=== PATIENT | female | born 1945 | race African-American/Black ===

== ENCOUNTER 2019-01-19 05:26 | Observation (INO) | payer MEDICARE ==
--- NOTE | 2019-01-15 15:17 | Diagnostic Imaging Report ---
EXAMINATION: CHEST 2 VIEWS INDICATION: Pre-operative COMPARISON: None FINDINGS: LINES/TUBES:None LUNGS:The lungs are well-inflated. No focal consolidation or pulmonary edema. PLEURA:No pleural effusion or pneumothorax. MEDIASTINUM:The cardiomediastinal silhouette appears normal in size and shape. Atherosclerotic calcifications of the thoracic aorta. BONES/SOFT TISSUES:No acute osseous injury. ABDOMEN:No free air under the diaphragm. IMPRESSION: No focal pneumonia or pulmonary edema. Signed by: Marjorie Quesada MD on 01/15/2019 3:13 PM
[~2019-01-19] VITALS: Ht 167.6 cm; Wt 101.6 kg
[~2019-01-19 05:26] MED LIST: AMLODIPINE BESY10 MG PO; ATENOLOL100 MG PO; CLONIDINE HCL0.2 MG PO; CYMBALTA60 MG PO; DIOVAN320 MG PO; METFORMIN HCL500 MG PO; SIMVASTATIN20 MG PO; TIZANIDINE HCL4 M1 PO
--- OUTSIDE RECORDS SUMMARY | 2019-01-19 05:28 | XMS REPORT ---
Author Author [facility] Address Unknown Phone Unavailable Care Team Providers Care Licensed Sales Assistant Name Role Phone SHANNON TOWNSEND Unavailable Unavailable Problems This patient has no known problems. Allergies, Adverse Reactions, Alerts This patient has no known allergies or adverse reactions. Medications This patient has no known medications. Results Test Description Test Time Test Comments Text Results Atomic Results Result Comments CHEST 2 VIEWS 2019-01-15 15:13:00 [place] [address] Patient Name: PATRICK ENCISO MR #: [id number] : 1945 Age/Sex: 73/F Req #: [id number] [facility] Hospital Physician: Ordered by: SHANNON TOWNSEND MD Report #: [id number] Location: OR Room/Bed: Procedure: [id number] DX/CHEST 2 VIEWS Exam Date: 01/15/19 Exam Time: 1500 REPORT STATUS: Signed EXAMINATION: CHEST 2 VIEWS INDICATION: Pre-operative COMPARISON: None FINDINGS: LINES/TUBES:None LUNGS:The lungs are well-inflated. No focal consolidation or pulmonary edema. PLEURA:No pleural effusion or pneumothorax. MEDIASTINUM:The cardiomediastinal silhouette appears normal in size and shape. Atherosclerotic calcifications of the thoracic aorta. BONES/SOFT TISSUES:No acute osseous injury. ABDOMEN:No free air under the diaphragm. IMPRESSION: No focal pneumonia or pulmonary edema. Signed by: Audrey Quesada MD on 01/15/2019 3:13 PM Dictated By: AUDREY QUESADA MD 12 Transcribed By: RENEA on 01/15/191512 COPY TO: SHANNON TOWNSEND MD
[2019-01-19] MEDS ORDERED: CELECOXIB 200 MG CAP ONE (06:25)
[2019-01-19] MEDS ORDERED: DEXAMETHASONE SOD PHOS 10 MG/1 ML VIAL ONE (06:25)
[2019-01-19] MEDS ORDERED: GABAPENTIN 300 MG CAP ONE (06:25)
[2019-01-19] MEDS ORDERED: CEFAZOLIN SOD 1 GM/NS 50ML 100 ML IV ONE (06:26)
[2019-01-19] MEDS ORDERED: VANCOMYCIN HCL 1,000 MG ONE (06:51)
[2019-01-19] MEDS ORDERED: TRANEXAMIC ACID 1,000 MG/10 ML ML ONE (06:52)
[2019-01-19] MEDS ORDERED: SODIUM CHLORIDE 0.9% 500ML 500 ML ONE (06:52)
[2019-01-19] MEDS ORDERED: BACITRACIN 50,000 UNIT VIAL ONE (06:52)
[2019-01-19] MEDS ORDERED: ROPIVACAINE 246.25 MG, EPINEPHRINE HCL 1:1000 1ML 0.5 MG, CLONIDINE HCL 0.08 MG, KETORO... INJ ONE ×5 (08:00)
[2019-01-19] MEDS ORDERED: DEXMEDETOMIDINE HCL 2 ML ONE (08:58)
[2019-01-19] MEDS ORDERED: SUGAMMADEX SODIUM 200 MG/2 ML VIAL IV ONE (09:22)
[2019-01-19] MEDS ORDERED: DIPHENHYDRAMINE HCL INJ 50 MG/ML VIAL IM/IV PRN (09:30)
[2019-01-19] MEDS ORDERED: ACETAMINOPHEN 650 MG SUPP PR PRN (09:30)
[2019-01-19] MEDS ORDERED: ONDANSETRON HCL INJ 2MG/ML 2ML 2 MG/ML VIAL IV PRN (09:30)
[2019-01-19] MEDS ORDERED: PROMETHAZINE HCL (IM) 25 MG/ML VIAL IM PRN (09:30)
[2019-01-19] MEDS ORDERED: DOCUSATE SODIUM 100 MG CAP PO PRN (09:30)
[2019-01-19] MEDS ORDERED: HYDROCODONE/APAP 5MG-325MG TAB PO PRN (09:30)
[2019-01-19] MEDS ORDERED: FENTANYL CITRATE/PF 100MCG/2 ML INJ ONE ×2 (10:01→14:55)
[2019-01-19] MEDS ORDERED: TIZANIDINE HCL 4 MG TAB PO ONE (10:15)
--- NOTE | 2019-01-19 10:21 | Diagnostic Imaging Report ---
EXAMINATION: KNEE LEFT 1-2 VIEWS INDICATION: Postoperative COMPARISON: None FINDINGS: Portable AP and lateral views of the left knee demonstrate immediate postoperative findings of left total knee replacement. Alignment is anatomic. No unexpected fracture. Postoperative subcutaneous soft tissue emphysema. Surgical skin kishore in place. Small joint effusion. IMPRESSION: Anatomic alignment status post left total knee replacement. Signed by: Marjorie Quesada MD on 01/19/2019 10:18 AM
[2019-01-19] MEDS ORDERED: MORPHINE SULFATE INJ 4 MG/ML INJ 1ML ONE ×2 (10:26→10:50)
--- NOTE | 2019-01-19 13:45 | NUR ---
Received patient from PACU via stretcher. AAOx3 to time, person, place. Respirations even and unlabored. O2 2L NC. Dressing to left knee clean, dry, and intact, wrapped with BLADIMIR wrap. Oriented patient to room. Instructed to use call light for assistance. Voiced understanding.
[2019-01-19 14:00] VITALS: BP 163/79
[2019-01-19 14:16] VITALS: BP 163/79
[2019-01-19] MEDS ORDERED: MIDAZOLAM HCL 2 MG/2 ML VIAL ONE (14:55)
[2019-01-19] MEDS: HYDROCODONE/APAP 7.5MG-325MG 1 EA TAB PO PRN (14:55)
[2019-01-19] MEDS: CEFAZOLIN SOD 1 GM/NS 50ML 50 ML IV SCH ×2 (14:55→21:10)
[2019-01-19] MEDS: SODIUM CHLORIDE 0.9% 1000ML 1,000 ML IV SCH ×2 (14:55→19:23)
--- NOTE | 2019-01-19 15:32 | NUR ---
DR RUIZ OFFICE PREARRANGED FOLLOWING DISCHARGE PLAN OF: RETURNING HOME [address] [facility] [address] [facility] CONFIRMED WITH [facility] [phone] DME 3 IN ONE COMMODE,CPM AND ROLLING WALKER WITH WHEELS TO BE DELIVERED TO HOSPITAL BY 10AM PROVIDED BY [employer] [phone] PER KEKE. STATES IF UNABLE TO GET DELIVERED WILL CALL AND WE CAN ISSUE ROLLING WALKER AND THEY WILL FOLLOW UP FOR DELIVERY AT HOME FOLLOWING DAY.
--- NOTE | 2019-01-19 15:46 | NUR ---
PT STATES THEY DO HAVE A WALKER AT HOME AND WILL HAVE IT AT HOUSE TO GET OUT OF CARE TO [facility] REST OF DME DELIVERED TO HOME, CALLED KEKE AT [employer] TO LET HER KNOW WISHES.
[2019-01-19 16:08] VITALS: BP 149/66
[2019-01-19] MEDS: ASPIRIN 325 MG TAB PO SCH (16:19)
[2019-01-19] MEDS: CELECOXIB 200 MG CAP PO SCH (16:21)
[2019-01-19] MEDS: METFORMIN HCL 500 MG TAB PO SCH (16:21)
[2019-01-19] MEDS: ACETAMINOPHEN 1000 MG/100 ML IV SCH ×2 (16:21→23:16)
[2019-01-19] MEDS ORDERED: CELECOXIB 100 MG CAP PO SCH (17:00)
[2019-01-19] MEDS ORDERED: LIDOCAINE 2% /EPINEPHRINE 20 ML SDV INJ ONE (18:51)
[2019-01-19] MEDS ORDERED: ROPIVACAINE 0.5% 5 MG/ML 30 ML SDV ONE (18:51)
[2019-01-19] MEDS ORDERED: LABETALOL HCL 5 MG/ML 20ML VIAL ONE (18:53)
[2019-01-19] MEDS ORDERED: LIDOCAINE HCL 2% LOCAL INJ 5 ML SDV VIAL INJ ONE (18:53)
[2019-01-19] MEDS ORDERED: DEXAMETHASONE SOD PHOS INJ 4 MG/ML VIAL ONE (18:53)
[2019-01-19] MEDS ORDERED: NEOSTIGMINE 5 MG/5ML SYR ONE (18:53)
[2019-01-19] MEDS ORDERED: PROPOFOL IV EMULSION 10 MG/ML 20 ML VIAL ONE (18:53)
[2019-01-19] MEDS ORDERED: ONDANSETRON HCL INJ 2MG/ML 2ML 2 MG/ML VIAL ONE (18:53)
[2019-01-19] MEDS ORDERED: GLYCOPYRROLATE INJ 1MG/ 5 ML SYR ONE (18:53)
[2019-01-19] MEDS ORDERED: SEVOFLURANE INHAL SOLN 250 ML PEN BTL ONE (18:53)
[2019-01-19] MEDS ORDERED: ACETAMINOPHEN 1000 MG/100 ML IV ONE (18:53)
[2019-01-19] MEDS ORDERED: ROCURONIUM BROMIDE 10 MG/ML 5ML VIAL ONE (18:53)
[2019-01-19] MEDS ORDERED: SUCCINYLCHOLINE 200 MG/10 ML SYR ONE (18:53)
--- NOTE | 2019-01-19 19:05 | NUR ---
Report given to oncoming nurse of patients status. Resting in bed. No s/s of acute distress noted. CPM on at 60. Tolerating well. Side rails upx2, call light within reach.
--- NOTE | 2019-01-19 19:10 | NUR ---
REPORT TAKEN FROM MORNING RN.STABLE CONDITION.ON CPM @ 60 FLEXION DEGREE.
[2019-01-19 20:00] VITALS: BP 151/68
[2019-01-19 20:19] VITALS: BP 151/68
[2019-01-19] MEDS ORDERED: ZOLPIDEM TARTRATE 5 MG TAB PO PRN (21:00)
[2019-01-19] MEDS: CLONIDINE HCL 0.2 MG TAB PO SCH (21:09)
[2019-01-19] MEDS: SIMVASTATIN 20 MG TAB PO SCH (21:10)
[2019-01-19] MEDS: TIZANIDINE HCL 4 MG TAB PO SCH (21:10)
--- NOTE | 2019-01-19 21:39 | NUR ---
Assessment done.no resp.distress.tolerated cpm.voided by using bed rosado.uses spirometer.plexi pump is in place.bed locked and in lowest position.phone and call light within reach.instructed to call for assistance as needed.
[2019-01-20] VITALS (8 sets, daily range): BP systolic 141–189; BP diastolic 61–77
[2019-01-20] MEDS: HYDROCODONE/APAP 7.5MG-325MG 1 EA TAB PO PRN ×4 (01:11→16:57)
[2019-01-20] MEDS: SODIUM CHLORIDE 0.9% 1000ML 1,000 ML IV SCH ×2 (05:23→12:55)
[2019-01-20] MEDS: KETOROLAC TROMETHAMINE 30 MG/ML VIAL IV PRN ×3 (05:28→22:56)
[2019-01-20] MEDS: ACETAMINOPHEN 1000 MG/100 ML IV SCH ×2 (05:30→10:46)
--- NOTE | 2019-01-20 05:30 | NUR ---
Patient refused to put gwen hose on affected leg.
--- NOTE | 2019-01-20 06:00 | NUR ---
CPM applied @ 45 flexion degree at 06am.stable condition.
[2019-01-20] MEDS: CEFAZOLIN SOD 1 GM/NS 50ML 50 ML IV SCH (06:06)
--- NOTE | 2019-01-20 06:31 | Consultation ---
DATE OF CONSULTATION: REASON FOR CONSULTATION: . HISTORY OF PRESENT ILLNESS: The patient is a 73-year-old total knee arthroplasty for end-stage osteoarthritis, who has minimal pain postoperatively. REVIEW OF SYSTEMS: She denies any fever, chills, nausea, vomiting, headache, shortness of breath or dizziness. PAST MEDICAL HISTORY: Significant for diabetes, hyperlipidemia, and high blood pressure. MEDICATIONS: See MAR. ALLERGIES: NONE. SOCIAL HISTORY: Nonsmoker. Nondrinker. FAMILY HISTORY: Noncontributory. PHYSICAL EXAMINATION: VITAL SIGNS: . GENERAL: She is no apparent distress, lying in bed. NECK: Supple. No lymphadenopathy. CARDIOVASCULAR: Regular rate and rhythm. LUNGS: Clear to auscultation bilaterally. ABDOMEN: Good bowel sounds. Soft and nontender. EXTREMITIES: No clubbing or cyanosis. NEUROLOGIC: Nonfocal. ASSESSMENT AND PLAN: 1. Left knee pain, continue with postoperative care and physical therapy. 2. Anemia, check a CBC. 3. Diabetes. Continue with her medications and monitoring. 4. Hypertension. Continue with her medications and monitoring. 5. Hyperlipidemia. Continue with her cholesterol medicine. Please see the hospital chart for full details. MD MARIA ELENA Waters/TRUONG /[id number]
--- NOTE | 2019-01-20 06:40 | NUR ---
Bed side shift report given to the oncoming Rn.stable condition.
[2019-01-20 06:45] LABS: HEMATOCRIT 33.4 % (34.2-44.1); HEMOGLOBIN 10.3 g/dL (12.0-16.0)
[2019-01-20] MEDS: CELECOXIB 200 MG CAP PO SCH ×2 (08:19→16:57)
[2019-01-20] MEDS: CLONIDINE HCL 0.2 MG TAB PO SCH ×2 (08:19→20:03)
[2019-01-20] MEDS: VALSARTAN 160 MG TAB PO SCH (08:19)
[2019-01-20] MEDS: AMLODIPINE BESYLATE 10 MG TAB PO SCH (08:19)
[2019-01-20] MEDS: ATENOLOL 100 MG TAB PO SCH (08:19)
[2019-01-20] MEDS: DULOXETINE HCL 30 MG DELAYED RELEASE PO SCH (08:19)
[2019-01-20] MEDS: ASPIRIN 325 MG TAB PO SCH ×2 (08:19→16:57)
[2019-01-20] MEDS: METFORMIN HCL 500 MG TAB PO SCH ×2 (08:19→16:57)
--- NOTE | 2019-01-20 14:50 | NUR ---
Per Romel with PT. Patient ambulated 14 feet with moderate to max assistance. Paged Esvin SZYMANSKI to notify of patient's status. Awaiting call back.
--- NOTE | 2019-01-20 16:12 | NUR ---
Notified Esvin SZYMANSKI of patient's status. No new orders.
--- NOTE | 2019-01-20 16:35 | Operative Report ---
DATE OF PROCEDURE: 01/19/2019 SURGEON: Tank Abraham MD JINRIKISHA DRIVER: Zeyad Preston, certified PA. PREOPERATIVE DIAGNOSIS: Osteoarthritis, left knee. POSTOPERATIVE DIAGNOSIS: Osteoarthritis, left knee. PROCEDURE: Left total knee arthroplasty, * added complexity secondary to obesity. INDICATIONS: The patient is a severely deconditioned 73-year-old lady, who has end-stage arthritis of her left knee. The knee has been untreated and has subluxed into a varus deformity. Her body habitus is such that she has a BMI of approximately 37, but the overwhelming majority of her weight is distributed to her lower extremities. She has been severely limited in her mobility and has had a little exercise in the last two years. The findings and options have been discussed with the patient and her . She would like to proceed with a left total knee replacement. The risks and benefits and added challenges to her body habitus were discussed. The added challenges due to her lack of physical conditioning have been discussed. She states she understands and is compelled to proceed with the surgery. PROCEDURE IN DETAIL: The patient was brought to the operating room and placed under general anesthetic. She received prophylactic antibiotics, a regional block and tranexamic acid in the holding area. Her left lower extremity was carefully prepped and draped in a sterile manner. Added time and personnel were necessary to accommodate the patient's massive left leg. A tourniquet was placed on the upper thigh. A preoperative time-out was performed. The extremity was carefully exsanguinated and the tourniquet was inflated to 350 mmHg. We elected to go up to 350 because of her body habitus. An anterior approach with a medial parapatellar arthrotomy was performed. Approximately 6 cm of subcutaneous fat was encountered. Care was taken to avoid excessive deep dissection to avoid the creation of deep spaces for later fluid collection. While this was important for her postoperative course, it did make the visibility more challenging in the altered surgical field. The knee was brought up into flexion with the patella everted. The patella would not stay everted without significant difficulty. Marginal osteophytes and meniscal remnants were excised. There was no anterior cruciate ligament remaining. Because of her size, I could not use an extramedullary cutting guide. An intramedullary cutting guide was used. I could not approximate the cutting guide adjacent to the bone. I ended up using the cutting guide with the intramedullary jennifer in place to initiate the medial cut. The posterior slope was dialed in to accommodate the existing slope. There was a large medial defect. The intramedullary cutting guide was then removed and the remainder of the cut was performed free hand. A Durbin and Nephew posterior stabilized Legion knee system were used. The tibial base plate was a size #3. The central fin punch was impacted and attention was directed towards the distal femur. Again, time and challenges were encountered to provide appropriate visibility. Unfortunately, at this time, the patient had a hypertensive spike to a systolic pressure above 220. This created a venous tourniquet breakthrough bleeding. We stopped the case. We applied a moistly soaked lap sponge to the wound. We elevated the extremity and told the anesthesiologist could control the blood pressure. The extremity was once again exsanguinated and the tourniquet was reinflated. We continued to proceed. The distal femur was cut in 6 degrees of valgus and rotation referencing off a combination of landmarks including Whitesides line, the epicondylar axis and the posterior condyles. Massive marginal osteophytes were encountered. All of the bone cuts were irrigated with a spray mixture of diluted polymyxin and vancomycin spray. The femoral component was a size #5. The anterior and posterior cuts were made. The notch cut was made. A trial reduction was performed. I elected to use an 11 mm posterior stabilized tibial insert. The patella was resurfaced with a 29 mm x 7.5 mm patellar button. The thickness of the patella was only 16 mm prior to resurfacing. It was approximately 20 mm after resurfacing. The patellar tracking was appropriately concentric. The trial implants were then all removed. A 100 mL premixed pericapsular JAIMEE injection was placed into the surrounding soft tissue. The knee was thoroughly irrigated with a copious amount of sterile saline using a pulsatile lavage. The components were cemented into place using a high viscosity Palacos cement preloaded with antibiotics. Care was taken to remove extravasated cement. The knee was further irrigated while the cement cured. The wound was then closed with interrupted #1 Ethibond after sprinkling 500 mg of vancomycin powder into the deep wound. The knee was put through flexion and extension to ensure a secure closure. The skin was carefully closed with subcuticular Vicryl and kishore. Sterile Aquacel bandage was applied. The patient was extubated and transported to the recovery room in stable condition. Blood loss was about 50 mL. At the end of the procedure, all needle and sponge counts were correct. Tank Abraham MD DR/TRUONG /[id number]
[2019-01-20] MEDS: HYDRALAZINE HCL 20 MG/ML VIAL IV PRN (16:57)
[2019-01-20] MEDS ORDERED: ONDANSETRON HCL 4 MG ORAL DISINTEGRATING TAB PO PRN (17:15)
[2019-01-20] MEDS ORDERED: ACETAMINOPHEN 1000 MG/100 ML IV PRN (18:00)
--- NOTE | 2019-01-20 19:05 | NUR ---
RECEIVED REPORT FROM PREVIOUS NURSE. CALL LIGHT WITHIN REACH. PATIENT IN BED.
--- NOTE | 2019-01-20 19:10 | NUR ---
Report given to oncoming nurse of patient's status. Resting in bed. AAOX4 to time, person, place, situation. Respirations even and unlabored. Dressing to left knee clean, dry, and intact. Side rails upx3, call light within reach.
[2019-01-20] MEDS: SIMVASTATIN 20 MG TAB PO SCH (20:03)
[2019-01-20] MEDS: TIZANIDINE HCL 4 MG TAB PO SCH (20:11)
[2019-01-21] VITALS: BP 154/67
[2019-01-21 04:00] VITALS: BP 144/68
[2019-01-21 06:15] LABS: HEMATOCRIT 36.1 % (34.2-44.1); HEMOGLOBIN 11.3 g/dL (12.0-16.0)
[2019-01-21] MEDS: KETOROLAC TROMETHAMINE 30 MG/ML VIAL IV PRN ×2 (06:32→12:41)
--- NOTE | 2019-01-21 06:55 | NUR ---
GAVE REPORT TO ONCOMING NURSE. PATIENT IN BED. CALL LIGHT WITHIN REACH.
[2019-01-21 08:00] VITALS: BP 189/86
[2019-01-21] MEDS ORDERED: CEPACOL SORE THROAT LOZENGES PO PRN (08:30)
--- NOTE | 2019-01-21 08:30 | NUR ---
pt co of burning and frequency urination notified dr mckeon, urine sent to lab
[2019-01-21 08:54] VITALS: BP 189/86
[2019-01-21 09:29] LABS: BILIRUBIN,URINE NEGATIVE (NEGATIVE); CLARITY,URINE CLOUDY (CLEAR); COLOR,URINE YELLOW (YELLOW); KETONES,URINE NEGATIVE (NEGATIVE); LEUKOCYTE ESTERASE ,URINE NEGATIVE (NEGATIVE); NITRITE,URINE NEGATIVE (NEGATIVE); PROTEIN,URINE DIPSTICK NEGATIVE (NEGATIVE); URINE UROBILINOGEN 0.2 mg/dL (0.2 - 1)
[2019-01-21] MEDS: METFORMIN HCL 500 MG TAB PO SCH (09:30)
[2019-01-21] MEDS: DULOXETINE HCL 30 MG DELAYED RELEASE PO SCH (09:30)
[2019-01-21] MEDS: ATENOLOL 100 MG TAB PO SCH (09:30)
[2019-01-21] MEDS: CLONIDINE HCL 0.2 MG TAB PO SCH (09:30)
[2019-01-21] MEDS: CELECOXIB 200 MG CAP PO SCH (09:30)
[2019-01-21] MEDS: VALSARTAN 160 MG TAB PO SCH (09:30)
[2019-01-21] MEDS: ASPIRIN 325 MG TAB PO SCH (09:30)
[2019-01-21] MEDS: AMLODIPINE BESYLATE 10 MG TAB PO SCH (09:30)
[2019-01-21] MEDS: HYDRALAZINE HCL 20 MG/ML VIAL IV PRN (09:50)
[2019-01-21] MEDS: HYDROCODONE/APAP 7.5MG-325MG 1 EA TAB PO PRN (09:50)
[2019-01-21 09:58] LABS: AMORPHOUS SEDIMENT,URINE MODERATE (FEW); BACTERIA,URINE MANY /HPF; EPITHELIAL CELLS,URINE MANY /LPF
--- NOTE | 2019-01-21 10:30 | NUR ---
pt bladder scanned 767 mls of urine noted, notified dr mckeon with urine results and bladder scanned, orders to in/out cath and rocephine 1gm x 1 dose, orders carried out. will continue to monitor pt.
--- NOTE | 2019-01-21 10:35 | NUR ---
700 mls of yellow urine from in/out cath noted, pt tolerated well, cpm at 45, pt denies discomfort will continue to monitor
[2019-01-21] MEDS ORDERED: CEFTRIAXONE SOD 1 GM/NS 50 ML 50 ML IV ONE (10:45)
[2019-01-21 12:00] VITALS: BP 187/87
--- NOTE | 2019-01-21 13:28 | NUR ---
ORDER REC'D FOR SNF EVAL BY [facility] D[facility]ONT CM SPOKE WITH PT AND SON IN PT'S ROOM OFFERED SNF AND PT REFUSING; WANTS TO GO HOME AND CONTINUE WITH HOME PT NESTOR AND NURSE CELIS NOTIFIED OF PT'S CHOICE
--- NOTE | 2019-01-21 15:05 | NUR ---
PT URINATED 200CC OF YELLOW URINE, BP 159/87, PT AMBULATED WITH PT [address] TOWNSEND AND [address] BARBOSA
--- NOTE | 2019-01-21 15:40 | NUR ---
PT STABLE TO DC HOME,
== END 2019-01-21 15:56 | disposition home health service (06) ==
LOC: OR 05:26 → PACU V 09:25 → MED/SURG 13:51
PROVIDERS: ADMIT Specialist; ATTEND Specialist
DX: M17.12 Unilateral primary osteoarthritis, left knee (principal); E11.9 Type 2 diabetes mellitus without complications; I10 Essential (primary) hypertension; D64.9 Anemia, unspecified; E78.5 Hyperlipidemia, unspecified; E66.9 Obesity, unspecified; Z68.36 Body mass index [BMI] 36.0-36.9, adult; Z79.84 Long term (current) use of oral hypoglycemic drugs
CPT/HCPCS: 27447; 36415 ×3; 71046; 73560; 81001; 82948 ×3; 85014 ×2; 85018 ×2; 86850; 86900; 86920; 97110; 97116 ×2; 97139 ×2; 97162; 97530 ×3; C1713 ×2; G0378 ×3; J0131 ×2; J0171; J0360 ×2; J0690 ×2; J0696; J1100 ×2; J1885 ×3; J2001 ×2; J2250; J2270; J2405; J2704; J2795; J3010; J3370; J3490 ×2; J7030 ×2; J7040